=== PATIENT | female | born 1980 | race Caucasian/White ===

== ENCOUNTER 2017-03-12 08:38 | Outpatient (CLI) | payer OTHER ==
--- NOTE | 2017-03-12 11:23 | DIAGNOSTIC IMAGING REPORT ---
PROCEDURE: MR BRAIN W/WO CONTRAST INDICATION: NEW DAILY PERSISTENT HEADACHE TECHNIQUE: Multiplanar multisequence MRI imaging of the brain without contrast. Post administration of 15 ml ProHance gadolinium based IV contrast, three plane T1 fat sat sequences were obtained. COMPARISON: None. FINDINGS: Nonenhancing the left frontal lesion in the white matter that measures approximately a centimeter. White matter disease including multiple sclerosis would be in the differential. No restricted diffusion to suggest acute ischemia. No evidence of acute or chronic intraparenchymal or extra-axial hemorrhage. No mass, mass effect, or midline shift. No suspicious enhancement. Normal signal in the visible bones. The sinuses are normally aerated. Visible extracranial soft tissues including the orbits are normal. IMPRESSION: 1. Left deep frontal white matter lesion. Demyelinating process would be in the differential. 2. No abnormal enhancement.
== END 2017-03-12 23:00 | disposition home or self-care (01) ==
LOC: MRI SRH 08:38
DX: R90.82 White matter disease, unspecified (principal)